=== PATIENT | female | born 1995 | race American Indian/Alaskan Native ===

== ENCOUNTER 2016-06-06 21:21 | Emergency (ER) | payer MEDICAID ==
[2016-06-06 21:52] VITALS: BP 123/82
--- NOTE | 2016-06-06 22:50 | Emergency Department Report ---
ED Female HPI - General Chief complaint: Urogenital-Female Stated complaint: POSS BOIL Source: patient Mode of arrival: Ambulatory Limitations: No Limitations - History of Present Illness Initial comments: 21-year-old -[place]ir[place] female that is 25 weeks comes in today for complaint of her Bartholin's cyst has become inflamed and is causing her a lot of discomfort. Patient reports this is a sent third Bartholin gland issue. She reports this flareup started about 4 days ago. She reports she has been doing sitz baths today has come to ahead now. She reports is difficult for her to walk and sit down. She has no known drug allergies. Only on vitamins and vitamin D 50,000 units weekly. She has no other concerns no vaginal discharge or vaginal bleeding no abdominal pain or pelvic pain. - Related Data Previous Rx's Medication Instructions Recorded Last Taken Type Acetaminophen/Codeine [Tylenol #3] 1 tab PO Q6H PRN #20 tab 10/11/15 Unknown Rx Ibuprofen [Motrin] 600 mg PO Q8H PRN #50 tablet 10/11/15 Unknown Rx Sulfamethoxazole/Trimethoprim 1 each PO BID #20 tablet 06/06/16 Unknown Rx [Bactrim DS TAB] Allergies Allergy/AdvReac Type Severity Reaction Status Date / Time No Known Allergies Allergy Unverified 05/28/13 11:16 ED Review of Systems ROS: Stated complaint: POSS BOIL Other details as noted in HPI ED Past Medical Hx - Past Medical History Previous Medical History?: Yes Additional medical history: Bartholin cyst, Miscarriage - Surgical History Past Surgical History?: No - Social History Smoking Status: Never Smoker Substance Use Type: None - Medications Home Medications: Home Medications Medication Instructions Recorded Confirmed Last Taken Type Acetaminophen/Codeine [Tylenol #3] 1 tab PO Q6H PRN #20 tab 10/11/15 Unknown Rx Ibuprofen [Motrin] 600 mg PO Q8H PRN #50 tablet 10/11/15 Unknown Rx Sulfamethoxazole/Trimethoprim 1 each PO BID #20 tablet 06/06/16 Unknown Rx [Bactrim DS TAB] ED Physical Exam - General Limitations: No Limitations General appearance: alert, in no apparent distress - External exam: Present: swelling (right side edematous mildy erythematous Bartholin gland. tenderness to palpate) Speculum exam: Present: erythema ED Course Vital Signs 06/06/16 21:48 Temperature 98.9 F Pulse Rate 79 Respiratory 16 Rate Blood Pressure 123/82 O2 Sat by Pulse 99 Oximetry - I & D Right Vagina Type of Procedure: Simple Blade Size: 11 I & D Procedure: betadine prep, gauze wick placed (catheter place 2 mL's of normal saline placed in the) ED Medical Decision Making - Medical Decision Making Patient has been evaluated by this provider fracture. Sims catheter place right side of vaginal Bartholin's gland. Discussed patient will place her on Bactrim double strength for 10 days. She reports that she has a follow-up appointment with her molding machine setter tomorrow. Discussed patient to have her FORK REPAIRER provider evaluate the Sims catheter to determine if she needs to continue it for 4 weeks. Patient verbalized understanding Critical care attestation.: If time is entered above; I have spent that time in minutes in the direct care of this critically ill patient, excluding procedure time. ED Disposition Clinical Impression: Bartholin's gland abscess Disposition: DISCHARGED TO HOME OR SELFCARE Is pt being admited?: No Does the pt Need Aspirin: No Condition: Stable Instructions: Bartholin Cyst (ED), Incision and Drainage (ED) Prescriptions: Sulfamethoxazole/Trimethoprim [Bactrim DS TAB] 1 each PO BID #20 tablet Referrals: your,provider [Other] - 3-5 Days
== END 2016-06-06 23:08 | disposition home or self-care (01) ==
LOC: ED 21:21
DX: N75.0 Cyst of Bartholin's gland (principal)

== ENCOUNTER 2016-09-01 08:27 | Inpatient (IN) | payer MEDICAID ==
[2016-09-01] MEDS ORDERED: ZOFRAN IV PRN (11:18)
[2016-09-01] MEDS ORDERED: MINERAL OIL PO PRN (11:18)
[2016-09-01] MEDS ORDERED: ePHEDrine SULFATE IV PRN ×2 (11:18→13:38)
[2016-09-01] MEDS ORDERED: XYLOCAINE 2% INFILTRATI ONE (11:18)
[2016-09-01] MEDS ORDERED: NARCAN 0.4 MG/1 ML IV PRN (11:18)
[2016-09-01] MEDS ORDERED: BRETHINE SUB-Q PRN (11:18)
[2016-09-01] MEDS ORDERED: STADOL IV PRN (11:18)
[2016-09-01] MEDS ORDERED: BRETHINE IVP PRN (11:18)
[2016-09-01 11:55] LABS: Hemoglobin 13.5 gm/dl (10.1-14.3); Mean Corpuscular HGB Conc 34 % (30-34); Mean Corpuscular Hemoglobin 31 pg (28-32); Mean Corpuscular Volume 93 fl (79-97); Platelet Count 191 K/mm3 (140-440); Red Cell Distribution Width 12.6 % (13.2-15.2)
[2016-09-01 11:56] LABS: White Blood Count 22.6 K/mm3 (4.5-11.0)
[2016-09-01] MEDS: LACTATED RINGERS 1,000 ML IV SCH ×2 (12:00→14:10)
[2016-09-01] MEDS ORDERED: PITOCin/NS 30 UNIT/500ML 30 UNITS/500 ML BAG IV SCH (12:00)
[2016-09-01] MEDS ORDERED: PITOCin/NS 20 UNIT/1000ML DRIP 20 UNITS/1,000 ML BAG IV SCH (12:00)
[2016-09-01] MEDS ORDERED: ePHEDrine SULFATE ONE (13:05)
[2016-09-01] MEDS ORDERED: NARCAN 2 MG/2 ML IV PRN (13:38)
--- NOTE | 2016-09-01 13:38 | Anesthesia Consultation ---
Anesthesia Consult and Med Hx Date of service: 09/01/16 - Airway Anesthetic Teeth Evaluation: Good ROM Head & Neck: Adequate Mental/Hyoid Distance: Adequate Mallampati Class: Class II Intubation Access Assessment: Possibly Difficult - Pulmonary Exam CTA: Yes - Cardiac Exam Cardiac Exam: RRR - Pre-Operative Health Status ASA Pre-Surgery Classification: ASA2 Proposed Anesthetic Plan: Epidural, Spinal - Pulmonary Hx Asthma: No - Cardiovascular System Hx Hypertension: No - Central Nervous System Hx Seizures: No Hx Psychiatric Problems: No - Endocrine Hx Renal Disease: No Hx Hypothyroidism: No Hx Hyperthyroidism: No - Hematic Hx Anemia: No Hx Sickle Cell Disease: No - Other Systems Hx Alcohol Use: No - Additional Comments Anesthesia Medical History Comments: PLT 191. IUP in Labor at 37.4 weeks
[2016-09-01] MEDS ORDERED: fentaNYL-BUPIV 2 MCG/ML-0.125% 200 MCG/100 ML BAG EPIDURAL SCH (14:00)
--- NOTE | 2016-09-01 14:24 | History and Physical Report ---
History of Present Illness Date of examination: 09/01/16 Date of admission: 09/01/16 12:22 Chief complaint: Intense Labor Pains History of present illness: Early entry to care, uncomplicated care. Past History Past Medical History: hematologic disorders (sickle cell trait) Past Surgical History: other (oral sx ) Family/Genetic History: diabetes (MGM, Aunt), stroke (MGM) Social history: single - Obstetrical History Expected Date of Delivery: 09/18/16 Actual Gestation: 37 Week(s) 4 Day(s) : 2 Spontaneous Abortions: 1 Medications and Allergies Allergies Allergy/AdvReac Type Severity Reaction Status Date / Time No Known Allergies Allergy Unverified 05/28/13 11:16 Home Medications Medication Instructions Recorded Confirmed Last Taken Type Acetaminophen/Codeine [Tylenol #3] 1 tab PO Q6H PRN #20 tab 10/11/15 Unknown Rx Ibuprofen [Motrin] 600 mg PO Q8H PRN #50 tablet 10/11/15 Unknown Rx Sulfamethoxazole/Trimethoprim 1 each PO BID #20 tablet 06/06/16 Unknown Rx [Bactrim DS TAB] Active Meds: Active Medications Butorphanol Tartrate (Stadol) 2 mg IV Q2H PRN PRN Reason: Pain , Severe (7-10) Last Admin: 09/01/16 12:20 Dose: 2 mg Lactated Ringer's (Lactated Ringers) 1,000 mls @ 125 mls/hr IV DIRECT MEGAN Last Admin: 09/01/16 12:00 Dose: 125 mls/hr Oxytocin/Sodium Chloride (Pitocin/Ns 20 Unit/1000ml Drip) 20 units in 1,000 mls @ 125 mls/hr IV DIRECT MEGAN Oxytocin/Sodium Chloride (Pitocin/Ns 30 Unit/500ml) 30 units in 500 mls @ 2 mls /hr IV TITR MEGAN PRN Reason: Protocol Fentanyl/Bupivacaine/Sodium Chlor (Fentanyl-Bupiv 2 Mcg/Ml-0.125%) 200 mcg in 100 mls @ 12 mls/hr EPIDURAL TITR MEGAN PRN Reason: Protocol Mineral Oil (Mineral Oil) 30 ml PO QHS PRN PRN Reason: Constipation Naloxone HCl (Narcan 0.4 Mg/1 Ml) 0.1 mg IV Q2MIN PRN PRN Reason: Res Rate </= 8 or 02 SAT < 92% Ondansetron HCl (Zofran) 4 mg IV Q8H PRN PRN Reason: Nausea And Vomiting Review of Systems All systems: negative - Vital Signs Vital signs: Vital Signs Pulse Pulse Ox 96 H 97 09/01/16 08:56 09/01/16 08:56 Temp Pulse Resp BP Pulse Ox 97.9 F 81 16 118/62 100 09/01/16 13:54 09/01/16 14:13 09/01/16 13:54 09/01/16 14:07 09/01/16 14:13 - Physical Exam Breasts: Positive: normal Cardiovascular: Regular rate Lungs: Positive: Clear to auscultation, Normal air movement Abdomen: Positive: normal appearance, soft, normal bowel sounds Genitourinary (Female): Positive: normal external genitalia, normal perenium Vagina: Positive: normal moisture Uterus: Positive: enlarged Anus/Rectum: Positive: normal perianal skin Extremities: Positive: normal - Obstetrical FHR: category 1 Uterine Contraction Monitor Mode: External Cervical Dilatation: 6 (AROM of a large amount of clear fluid at 1405) Cervical Effacement Percentage: 90 station: -1 Uterine Contraction Frequency (min): 5 Uterine Contraction Pattern: Regular Uterine Tone Measurement Phase: Resting Uterine Contraction Intensity: Moderate Results Result Diagrams: 09/01/16 11:20 Abnormal lab results 09/01/16 Range/Units 11:20 WBC 22.6 H (4.5-11.0) K/mm3 RDW 12.6 L (13.2-15.2) % All other labs normal. Assessment and Plan A: IUP @37 4/7 Weeks Category I Tracing Active Labor GBS Negative P: Admit to L&D per routine orders AROM Pitocin Augmentation
[2016-09-01] MEDS ORDERED: LANSINOH TP PRN (19:08)
[2016-09-01] MEDS ORDERED: MILK OF MAGNESIA PO PRN (19:08)
[2016-09-01] MEDS ORDERED: BENADRYL PO PRN (19:08)
[2016-09-01] MEDS ORDERED: NORCO 5/325 PO PRN (19:08)
[2016-09-01] MEDS ORDERED: PHENERGAN PR PRN (19:08)
[2016-09-01] MEDS ORDERED: TUCKS PAD TP PRN (19:08)
[2016-09-01] MEDS ORDERED: DULCOLAX PR PRN (19:08)
--- NOTE | 2016-09-01 19:18 | Procedure Note ---
OB Delivery Note - Delivery Date of Delivery: 09/01/16 (1830) Surgeon: ADRIA FUNK Estimated blood loss: other (250) - Vaginal Delivery presentation: compound (right) Delivery position: OA Intrapartum events: none Delivery induction: none Delivery augmentation: rupture of membranes, pitocin Delivery monitor: external FHT, external uterine Route of delivery: Delivery placenta: spontaneous Delivery cord: 3 umbilical vessels Episiotomy: none Delivery laceration: 1st degree Delivery repair: vicryl Anesthesia: epidural Delivery comments: of a live 6'5 female infant over a 1st degree perineal and right labial lacerations with a right hand compound presentation under epidural anesthesia with Apgars of 8 and 9 at 1830 on 09/01/2016. directly to maternal abd/ chest, skin to skin contact. Perineal and labial lacerations repaired with 2-[address]-1. Spontaneous delivery of placenta complete and intact with Erwin side presenting at 1836. Fundus is firm and midline located 5 below the U. Lochia is scant. Delayed cord clamping and cutting; Cord cut by the father of the baby. - Infant A at 1 minute: 8 at 5 minutes: 9 Gender: Female (6'5)
[2016-09-01] MEDS ORDERED: SODIUM CHLORIDE FLUSH SYRINGE 10 ML IV SCH (20:00)
[2016-09-01] MEDS: MOTRIN PO SCH (23:10)
[2016-09-01] MEDS: COLACE PO SCH (23:10)
[2016-09-02] MEDS: MOTRIN PO SCH ×3 (05:22→17:24)
[2016-09-02 08:06] LABS: Hematocrit 34.9 % (30.3-42.9); Hemoglobin 11.7 gm/dl (10.1-14.3)
--- NOTE | 2016-09-02 09:23 | Progress Note ---
Assessment and Plan A: PPD 1 VSS P: Routine care D/C today Subjective - Subjective Date of service: 09/02/16 Principal diagnosis: PPD1 Interval history: 21 yo @ 37.4 presented to L&D with intense labor pains. Early entry to care, uncomplicated care. Delivered baby girl on 09/01/16 @ 1830. Patient reports: appetite normal, voiding normally, pain well controlled, ambulating normally : doing well Objective - Vital Signs Latest vital signs: Vital Signs Temp Pulse Pulse Resp BP BP Pulse Ox 09/02/16 04:35 98.5 F 85 20 121/72 09/02/16 00:20 98.7 F 91 H 20 119/77 09/01/16 20:50 98.1 F 90 20 114/72 09/01/16 20:02 60 87 09/01/16 20:00 90 100 09/01/16 19:55 98 H 99 09/01/16 19:51 100 H 108/60 09/01/16 19:50 97 H 100 09/01/16 19:45 98.2 F 95 H 96 H 18 123/69 100 09/01/16 19:40 92 H 99 09/01/16 19:36 100 H 123/69 09/01/16 19:35 101 H 84 09/01/16 19:30 103 H 98 09/01/16 19:29 98.0 F 104 H 12 120/68 09/01/16 19:25 98.2 F 99 H 107 H 18 141/72 86 09/01/16 19:21 107 H 120/68 09/01/16 19:06 100 H 122/70 09/01/16 19:00 98.0 F 18 09/01/16 18:51 107 H 123/66 09/01/16 18:40 16 09/01/16 18:36 125 H 136/70 09/01/16 18:23 129 H 128/84 09/01/16 18:13 110 H 100 09/01/16 18:08 106 H 100 09/01/16 18:07 110 H 124/78 09/01/16 18:03 101 H 100 09/01/16 17:58 102 H 99 09/01/16 17:53 96 H 133/74 100 09/01/16 17:48 98 H 100 09/01/16 17:43 90 100 06/28/17 17:38 134 H 100 09/01/16 17:37 107 H 94/71 09/01/16 17:33 98 H 99 09/01/16 17:28 89 100 09/01/16 17:23 105 H 99 09/01/16 17:22 60 122/74 09/01/16 17:18 101 H 100 09/01/16 17:13 97 H 93 09/01/16 17:08 103 H 100 09/01/16 17:07 97 H 106/68 09/01/16 17:05 94 H 91 09/01/16 17:03 94 H 100 09/01/16 16:58 95 H 99 09/01/16 16:53 82 100 09/01/16 16:51 94 H 104/63 09/01/16 16:48 93 H 99 09/01/16 16:43 84 100 09/01/16 16:38 84 100 09/01/16 16:37 84 109/68 09/01/16 16:33 95 H 90 09/01/16 16:28 95 H 100 09/01/16 16:23 101 H 100 09/01/16 16:22 101 H 110/66 09/01/16 16:18 84 100 09/01/16 16:13 82 100 09/01/16 16:08 94 H 100 09/01/16 16:07 88 101/64 09/01/16 16:03 82 100 09/01/16 15:58 85 100 09/01/16 15:53 95 H 100 09/01/16 15:51 92 H 109/67 09/01/16 15:48 86 100 09/01/16 15:43 95 H 99 09/01/16 15:42 100 H 89 09/01/16 15:38 86 100 09/01/16 15:36 93 H 121/73 09/01/16 15:33 95 H 99 09/01/16 15:28 97 H 100 09/01/16 15:24 100 H 78 L 09/01/16 15:23 88 125/79 100 09/01/16 15:18 82 100 09/01/16 15:13 82 100 09/01/16 15:08 86 100 09/01/16 15:06 80 110/67 09/01/16 15:03 85 100 09/01/16 14:58 93 H 100 09/01/16 14:55 18 09/01/16 14:53 89 125/80 100 09/01/16 14:48 85 100 09/01/16 14:43 87 100 09/01/16 14:38 84 100 09/01/16 14:37 88 121/67 09/01/16 14:33 83 100 09/01/16 14:28 78 100 09/01/16 14:23 86 100 09/01/16 14:22 76 114/67 09/01/16 14:18 82 100 09/01/16 14:13 81 100 09/01/16 14:08 86 100 09/01/16 14:07 87 118/62 09/01/16 14:03 71 99 09/01/16 13:58 76 100 09/01/16 13:54 97.9 F 16 09/01/16 13:53 69 100 09/01/16 13:51 70 110/58 09/01/16 13:49 73 106/61 09/01/16 13:48 79 99 09/01/16 13:47 86 117/62 09/01/16 13:45 86 111/60 09/01/16 13:43 76 111/59 96 09/01/16 13:41 85 118/56 09/01/16 13:39 83 116/58 09/01/16 13:38 81 96 09/01/16 13:37 81 115/56 09/01/16 13:35 82 119/59 09/01/16 13:33 85 118/57 97 09/01/16 13:31 86 117/57 09/01/16 13:29 96 H 115/59 09/01/16 13:28 91 H 99 09/01/16 13:27 93 H 117/56 09/01/16 13:25 94 H 125/58 09/01/16 13:23 99 H 117/63 100 09/01/16 13:21 94 H 123/66 09/01/16 13:19 100 H 117/64 09/01/16 13:18 100 H 100 09/01/16 13:17 100 H 117/64 09/01/16 13:15 93 H 114/63 09/01/16 13:13 93 H 118/65 100 09/01/16 13:12 94 H 76 L 09/01/16 13:07 91 H 98 09/01/16 13:05 90 91 09/01/16 13:02 87 95 09/01/16 12:57 93 H 95 09/01/16 12:52 94 H 96 09/01/16 12:47 80 95 09/01/16 12:42 95 H 95 09/01/16 12:41 88 91 09/01/16 12:37 86 95 09/01/16 12:36 86 93 09/01/16 12:32 83 97 09/01/16 12:28 84 94 09/01/16 12:27 91 H 96 09/01/16 12:22 91 H 100 09/01/16 12:17 90 100 09/01/16 12:12 91 H 100 09/01/16 12:06 100 H 141/72 09/01/16 11:15 95 H 100 09/01/16 11:10 93 H 100 09/01/16 11:06 88 Intake and Output 09/01/16 09/02/16 09/02/16 22:59 06:59 14:59 Intake Total 720 Output Total 1300 1600 Balance -1300 -880 Intake: Oral 720 Output: Urine 1300 1600 Indwelling Catheter 1300 Void 1600 Other: Total, Intake Amount 240 Total, Output Amount 1300 800 Estimated Blood Loss 250 - Exam Cardiovascular: Present: Regular rate Lungs: Present: Normal air movement Vulva: both: normal (scant lochia) Uterus: Present: fundal height below umbilicus Extremities: Present: normal Deep Tendon Reflex Grade: Normal +2 - Labs Labs: Abnormal lab results 09/01/16 Range/Units 11:20 WBC 22.6 H (4.5-11.0) K/mm3 RDW 12.6 L (13.2-15.2) % - Allied health notes Allied health notes reviewed: nursing
--- NOTE | 2016-09-02 09:44 | Discharge Summary ---
Providers - Providers Date of Admission: 09/01/16 12:22 Date of discharge: 09/02/16 Attending physician: SYDNEY CLEANING MD Primary care physician: SYSTEM SUPPORT TECHNICIAN Hospitalization Reason for admission: active labor Delivery: Laceration: 1st degree, other (right labial) Other procedures: none complications: none Discharge diagnosis: IUP at term delivered [place] baby: female Hospital course: uneventful Condition at discharge: Good Disposition: DC-01 TO HOME OR SELFCARE Plan - Provider Discharge Summary Activity: routine, no sex for 6 weeks, no heavy lifting 4 weeks, no strenuous exercise Diet: routine Instructions: routine Additional instructions: [] Smoking cessation referral if applicable(refer to patient education folder for contact #) [] Refer to [facility]'s [facility] Booklet Call your doctor immediately for: * Fever > 100.5 * Heavy vaginal bleeding ( >1 pad per hour) * Severe persistent headache * Shortness of breath * Reddened, hot, painful area to leg or breast * Drainage or odor from incision. * Keep incision clean and dry at all times and follow doctor's instructions regarding bathing/showering - Follow up plan Follow up: [facility] [Provider Group] - 6 Weeks
[2016-09-02] MEDS: COLACE PO SCH (11:48)
--- NOTE | 2016-09-02 14:36 | Progress Note ---
Subjective Date of service: 09/02/16 Principal diagnosis: PPD1 Interval history: 1st day after normal vaginal delivery Patient is in the bed, relatively comfortable. Pain is well controlled with pain meds. Ambulated well. No residual neurological deficit. No anesthesia complications Objective - Constitutional Vitals: Vital Signs - 12hr 09/02/16 09/02/16 09/02/16 04:35 09:30 13:32 Temperature 98.5 F 97.9 F 98.2 F Pulse Rate [ 85 89 87 Left From Monitor] Pulse Rate [ 89 87 Right] Respiratory 20 20 18 Rate Blood Pressure 121/72 111/78 98/57 [Right Arm] - Labs CBC & Chem 7: 09/02/16 07:42
[2016-09-02 17:20] VITALS: BP 117/71
== END 2016-09-02 21:35 | disposition home or self-care (01) | DRG 775 ==
LOC: TRG 08:27 → LD 12:22 → OB 20:07
PROVIDERS: ADMIT Obstetrics & Gynecology; ATTEND Obstetrics & Gynecology
PROC: 10E0XZZ Delivery of Products of Conception, External Approach (ICD-10-PCS; principal; 2016-09-01)
PROC: 00HU33Z Insertion of Infusion Device into Spinal Canal, Percutaneous Approach (ICD-10-PCS; 2016-09-01)
PROC: 3E0R3CZ (ICD-10-PCS; 2016-09-01)
PROC: 0HQ9XZZ Repair Perineum Skin, External Approach (ICD-10-PCS; 2016-09-01)
DX: O32.6XX0 Maternal care for compound presentation, not applicable or unspecified (principal); O70.0 First degree perineal laceration during delivery; Z3A.37 37 weeks gestation of pregnancy; Z37.0 Single live birth
CPT/HCPCS: 36415; 85014; 85018; 85027; 86850; 86900; 86901; 99211; G0463; J0595; J2590; J7120